=== PATIENT | female | born 1945 | race Asian ===

== ENCOUNTER 2017-03-10 07:20 | Day surgery (SDC) | payer MEDICARE, OTHER ==
[~2017-03-10] VITALS: Ht 152.4 cm; Wt 65.0 kg
[~2017-03-10 07:20] MED LIST: FentaNYL CITRATE-PF 100 MCG/2 ML VIAL IVP ONE; MIDAZOLAM HCL 2 MG/2 ML VIAL IVP ONE; NIFE30TA5 PO; OMEP20 PO; PRAV40 PO
[2017-03-10] MEDS ORDERED: ACETAMINOPHEN 325 MG TABLET PO PRN (07:45)
[2017-03-10] MEDS ORDERED: TETRACAINE HCL 0.5% 2 ML OPHTHALMIC SOLUTION OD ONE (07:45)
[2017-03-10] MEDS ORDERED: AcetaZOLAMIDE 250 MG TABLET PO ONE (07:45)
[2017-03-10] MEDS ORDERED: RINGERS SOLUTION,LACTATED 500 ML IV ONE ×2 (08:00→08:51)
[2017-03-10] MEDS ORDERED: CYCLOPENTOLATE HCL 2% 2 ML OPHTHALMIC SOLUTION ONE (08:50)
[2017-03-10] MEDS ORDERED: MOXIFLOXACIN HCL 0.5% 3 ML OPHTHALMIC SOLUTION ONE (08:51)
[2017-03-10] MEDS ORDERED: DICLOFENAC SODIUM 0.1% 2.5 ML OPHTHALMIC SOLUTION ONE (08:51)
[2017-03-10] MEDS ORDERED: PHENYLEPHRINE HCL 2.5% 2 ML OPHTHALMIC SOLUTION ONE (08:51)
[2017-03-10] MEDS ORDERED: TETRACAINE HCL 0.5% 2 ML OPHTHALMIC SOLUTION ONE (08:51)
[2017-03-10] MEDS: DICLOFENAC SODIUM 0.1% 2.5 ML OPHTHALMIC SOLUTION OD SCH ×3 (09:02→09:22)
[2017-03-10] MEDS: MOXIFLOXACIN HCL 0.5% 3 ML OPHTHALMIC SOLUTION OD SCH ×3 (09:02→09:22)
[2017-03-10] MEDS: PHENYLEPHRINE HCL 2.5% 2 ML OPHTHALMIC SOLUTION OD SCH ×3 (09:02→09:13)
[2017-03-10] MEDS: CYCLOPENTOLATE HCL 2% 2 ML OPHTHALMIC SOLUTION OD SCH ×3 (09:02→09:13)
[2017-03-10] MEDS ORDERED: AcetaZOLAMIDE 250 MG TABLET ONE (10:59)
== END 2017-03-10 11:45 | disposition home or self-care (01) ==
LOC: SURGERY 07:20
PROVIDERS: ATTEND Ophthalmology
DX: H25.11 Age-related nuclear cataract, right eye (principal); I10 Essential (primary) hypertension; G47.33 Obstructive sleep apnea (adult) (pediatric); K21.9 Gastro-esophageal reflux disease without esophagitis; M54.9 Dorsalgia, unspecified; Z98.890 Other specified postprocedural states; Z98.42 Cataract extraction status, left eye
CPT/HCPCS: 66984; 93005; C1780; J2250; J3010; J7120